=== PATIENT | male | born 1950 | race Caucasian/White ===

== ENCOUNTER 2020-06-12 08:56 | Outpatient (CLI) | payer OTHER, SELFPAY ==
--- NOTE | ~2020-06-12 | US_ITS ---
EXAMINATION: US aorta [facility] scr[facility] DATE: 06/12/2020 10:52 INDICATION: Abdominal aortic aneurysm screening TECHNIQUE: Grayscale, color Doppler, and pulsed Doppler images of the aorta and common iliac arteries were obtained. COMPARISON: None. FINDINGS: The proximal aorta measures 2.1 cm. The mid aorta measures 2.2 cm. The distal aorta measures 2.0 cm. The right common iliac artery measures 11 mm. The left common iliac artery measures 13 mm. IMPRESSION: 1. Normal abdominal aorta. Reviewed, dictated and finalized at location A. IMPRESSION: 1. Normal abdominal aorta.
== END 2020-06-12 08:57 | disposition home or self-care (01) ==
PROVIDERS: PCP Internal Medicine; Visit Provider Nurse Practitioner
DX: Z13.6 Encounter for screening for cardiovascular disorders (principal)
CPT/HCPCS: 76706

== ENCOUNTER 2020-11-17 09:59 | Day surgery (SDC) | payer OTHER, SELFPAY ==
[2020-11-17 10:05] VITALS: BP 161/87; PULSE 82; RESP 20; TEMP 36.6; O2SAT 98
--- NOTE | 2020-11-17 10:59 | ED.GENADULT ---
HPI - General Adult General Chief complaint: Unspecified Stated complaint: FOOD BOLUS Time Seen by Provider: 11/17/20 10:03 History of Present Illness HPI narrative: Patient is a 70-year-old male with history of esophageal stricture who presents ER with concern for esophageal food bolus. Reports last dilation was in November of this year. He follows with Dr. Darnell. This morning he was eating biscuits and gravy and feels like the biscuit got clogged. It occurred about 1 hour prior to arrival. Feels like he was able to burp just prior to arrival. He keeps having regurgitation/vomiting. No fevers or chills or sweats. Feels a central chest pressure consistent with what he gets food stuck in his esophagus. Related Data Home Medications Medication Instructions Recorded Confirmed loratadine 10 mg PO DAILY 12/13/19 05/27/20 Allergies Allergy/AdvReac Type Severity Reaction Status Date / Time No Known Allergies Allergy Verified 11/17/20 11:56 Review of Systems Review of Systems: All systems reviewed & are unremarkable except as noted in HPI and below Constitutional: Constitutional: Denies chills and Denies fever(s) ENT: Reports dysphagia and Denies sore throat Cardiovascular: Cardiovascular: Reports chest pain (Due to food bolus) and Denies chest pain with activity Respiratory: Respiratory: Denies chest congestion, Denies cough and Denies wheezing Gastrointestinal: Gastrointestinal: Denies abdominal pain, Denies nausea and Reports vomiting PMFSH Past Medical History Medical History (Updated 11/18/20 @ 18:33 by Sloan Diamond MD) BPH NOS w ur obs/LUTS (09/19/19) Esophageal stricture GERD without esophagitis Obesity Pure hypercholesterolemia Seizure disorder Surgical History Surgical History (Updated 11/17/20 @ 11:01 by Sloan Diamond MD) History of esophagogastroduodenoscopy (EGD) Family History Family History Mother Family history of lung cancer Family history of malignant neoplasm of breast in first degree relative Family history of Alzheimer's disease Father Family history of renal failure Patient's father is Family history of lung cancer Sibling Patient's brother is in good health Social History Social History Smoking status: Former smoker Smoking end date: 11/28/74 Alcohol intake: never Exam Narrative: Exam Narrative: GENERAL: Well-appearing, well-nourished, and in no acute distress. HEAD: Normocephalic, atraumatic. ENT: Mucous membranes moist. CHEST: Clear to auscultation. No respiratory distress. HEART: Regular rate and rhythm. Normal peripheral pulses. ABDOMEN: Soft, nontender, nondistended. EXTREMITIES: Normal range of motion. Ambulates without difficulty. NEURO: Alert and oriented x3. PSYCH: Normal mood and affect. Course Course Emergency Course: Unable to clear with soda. Dr. Darnell will take to OR. Vital Signs Vital signs: Vital Signs Temperature 97.9 F 11/17/20 10:05 Pulse Rate 82 11/17/20 10:05 Respiratory Rate 20 11/17/20 10:05 Blood Pressure 161/87 H 11/17/20 10:05 Pulse Oximetry 98 11/17/20 10:05 Temperature 98.7 F 11/17/20 11:58 Pulse Rate 67 11/17/20 12:50 Respiratory Rate 16 11/17/20 12:50 Blood Pressure 122/79 11/17/20 12:50 Pulse Oximetry 99 11/17/20 12:50 Medical Decision Making Vital Signs Vital Signs: Vital Signs Temperature 97.9 F 11/17/20 10:05 Pulse Rate 82 11/17/20 10:05 Respiratory Rate 20 11/17/20 10:05 Blood Pressure 161/87 H 11/17/20 10:05 Pulse Oximetry 98 11/17/20 10:05 Temperature 98.7 F 11/17/20 11:58 Pulse Rate 67 11/17/20 12:50 Respiratory Rate 16 11/17/20 12:50 Blood Pressure 122/79 11/17/20 12:50 Pulse Oximetry 99 11/17/20 12:50 Discharge Plan Discharge Clinical Impression: Food impaction of esophagus P
[2020-11-17 11:37] VITALS: BP 138/90; PULSE 83; RESP 18; TEMP 36.7; O2SAT 96
--- NOTE | 2020-11-17 11:40 | WPDANESEPPF ---
Anes - Initial Pre Proc Eval Procedure: Operation Date: 11/17/20 11:30 Proposed Procedures p Esophagogastroduodenoscopy - Demetri Darnell MD Date/Time: 11/17/20 11:40 Surgeon: Demetri Darnell MD Pre Op Diagnosis: FOOD BOLUS Patient Data Age: 70 Gender: M Height: 1.8 m Weight: 106.5 kg Last Vital Signs Temp 36.7 C 11/17/20 11:37 Pulse 83 11/17/20 11:37 Resp 18 11/17/20 11:37 BP 138/90 11/17/20 11:37 Pulse Ox 96 11/17/20 11:37 Allergies Allergy/AdvReac Type Severity Reaction Status Date / Time No Known Allergies Allergy Verified 11/17/20 11:56 Home Medications Medication Instructions Recorded Confirmed Type omeprazole 20 mg capsule,delayed 20 mg PO BID #60 cap 11/27/19 05/27/20 Rx release loratadine 10 mg PO DAILY 12/13/19 05/27/20 History atorvastatin 10 mg tablet See Rx Instructions .ROUTE 10/21/20 Rx .COMPLEX #90 tablet phenytoin 50 mg chewable tablet See Rx Instructions .ROUTE 10/21/20 Rx .COMPLEX #630 tablet Other Studies: DATE: 06/12/2020 10:52 INDICATION: Abdominal aortic aneurysm screening TECHNIQUE: Grayscale, color Doppler, and pulsed Doppler images of the aorta and common iliac arteries were obtained. COMPARISON: None. FINDINGS: The proximal aorta measures 2.1 cm. The mid aorta measures 2.2 cm. The distal aorta measures 2.0 cm. The right common iliac artery measures 11 mm. The left common iliac artery measures 13 mm. IMPRESSION: 1. Normal abdominal aorta. Patient hx anesthesia problems: none Family hx anesthesia problems: none [facility] Past Medical History Medical History (Updated 11/17/20 @ 12:06 by Demetri Darnell MD) BPH NOS w ur obs/LUTS (09/19/19) Esophageal stricture GERD without esophagitis Obesity Pure hypercholesterolemia Seizure disorder Surgical History Surgical History (Updated 11/17/20 @ 11:01 by Sloan Diamond MD) History of esophagogastroduodenoscopy (EGD) Family History Family History Mother Family history of lung cancer Family history of malignant neoplasm of breast in first degree relative Family history of Alzheimer's disease Father Family history of renal failure Patient's father is Family history of lung cancer Sibling Patient's brother is in good health Social History Social History Smoking status: Former smoker Smoking end date: 11/28/74 Alcohol intake: never Anes - Eval Final PreProcedure Day of Procedure 11/17/20 11:40 Patient weight: obese Heart: regular rate and rhythm Lungs: clear to auscultation and normal air movement Airway: Mallampati scale class II Neurological: alert and oriented Last oral intake: >/= 8 hours ASA classification: III Emergent: no Anesthetic plan: proceed Anesthesia type and monitoring: general GIVS Informed Consent: The patient's anesthetic plan and its attendant risks and benefits were discussed with the patient/family/POA. Questions were solicited and answers provided to the satisfaction of the patient/family/POA.
[2020-11-17 11:58] VITALS: BP 141/87; PULSE 87; RESP 16; TEMP 37.1; O2SAT 98
[2020-11-17] MEDS: LACTATED RINGERS 1,000 ML 150 ML IV CONT (12:02)
--- NOTE | 2020-11-17 12:04 | WPDGICN ---
Assessment and Plan Assessment and plan (1) GERD (gastroesophageal reflux disease): Code(s): K21.9 - Gastro-esophageal reflux disease without esophagitis Status: Acute Assessment and Plan: Patient has a longstanding history of GE reflux disease he has had esophageal stricture ring in the past. Had difficulty following some food which appeared to be come impacted in the distal esophagus this morning. Plan is for follow-up EGD. We will or reassess the dose of his proton pump inhibitor. Hopefully remove the food impaction possible dilatation of any recurrent stricture ring. (2) Dysphagia: Code(s): R13.10 - Dysphagia, unspecified Status: Acute (3) Food impaction of esophagus: Code(s): T18.128A - Food in esophagus causing other injury, initial encounter Status: Acute GI Consult Note Consult date/time: 11/17/20 12:04 HPI: Roni Starks is a 70 year old male seen in evaluation at the request of the emergency room. Patient in usual state of health till this morning he was eating breakfast. He abruptly had food caught in his esophagus. He was unable to eat or swallow subsequently for this reason he presented to the emergency room. An EGD will be performed to remove this blockage. Patient has a known history of acid reflux. He has had esophageal stricture ring in the past. He has been prescribed proton pump inhibitors. Currently he is taking a 1/2 dose of omeprazole daily. Omeprazole 10 mg p.o. b.i.d.. Patient denies any heartburn at this time. He denies any weight loss he denies any bleeding. Review of Systems Review of Systems: All systems reviewed & are unremarkable except as noted in HPI and below [facility] Past Medical History Medical History (Updated 11/17/20 @ 12:06 by Demetri Darnell MD) BPH NOS w ur obs/LUTS (09/19/19) Esophageal stricture GERD without esophagitis Obesity Pure hypercholesterolemia Seizure disorder Surgical History Surgical History (Updated 11/17/20 @ 11:01 by Sloan Diamond MD) History of esophagogastroduodenoscopy (EGD) Family History Family History Mother Family history of lung cancer Family history of malignant neoplasm of breast in first degree relative Family history of Alzheimer's disease Father Family history of renal failure Patient's father is Family history of lung cancer Sibling Patient's brother is in good health Social History Social History Smoking status: Former smoker Smoking end date: 11/28/74 Alcohol intake: never Meds Home Medications and Allergies Home Medications Medication Instructions Recorded Confirmed Type omeprazole 20 mg capsule,delayed 20 mg PO BID #60 cap 11/27/19 05/27/20 Rx release loratadine 10 mg PO DAILY 12/13/19 05/27/20 History atorvastatin 10 mg tablet See Rx Instructions .ROUTE 10/21/20 Rx .COMPLEX #90 tablet phenytoin 50 mg chewable tablet See Rx Instructions .ROUTE 10/21/20 Rx .COMPLEX #630 tablet Allergies Allergy/AdvReac Type Severity Reaction Status Date / Time No Known Allergies Allergy Verified 11/17/20 11:56 Vital Signs Vital Signs - 24 hr 11/17/20 10:05 11/17/20 11:37 11/17/20 11:58 Temperature 97.9 F 98.0 F 98.7 F Pulse Rate 82 83 87 Respiratory Rate 20 18 16 Blood Pressure 161/87 H 138/90 141/87 H Pulse Oximetry 98 96 98 Exam Narrative: Exam Narrative: Physical exam reveals patient to be alert. Vital signs stable. HEENT exam unremarkable. He is anicteric. Lungs are clear to auscultation and percussion. Heart is without murmur or extra sounds. Abdominal exam bowel sounds are present soft nontender with no obvious organomegaly. Rectal exam is deferred.
[2020-11-17 12:30] VITALS: BP 129/79; PULSE 71; RESP 13; O2SAT 98
[2020-11-17 12:40] VITALS: BP 118/78; PULSE 70; RESP 18; O2SAT 96
[2020-11-17 12:50] VITALS: BP 122/79; PULSE 67; RESP 16; O2SAT 99
== END 2020-11-17 13:10 | disposition home or self-care (01) ==
LOC: ANHED 11:28 → ANHENDO 11:29
PROVIDERS: Emergency Provider Emergency Medicine; PCP Internal Medicine; Visit Provider Internal Medicine Gastroenterology
PROC: 0DJ08ZZ Inspection of Upper Intestinal Tract, Via Natural or Artificial Opening Endoscopic (ICD-10-PCS; CPT 43235; principal; 2020-11-17 11:30)
DX: T18.128A Food in esophagus causing other injury, initial encounter (principal); K21.9 Gastro-esophageal reflux disease without esophagitis; K22.2 Esophageal obstruction; R13.10 Dysphagia, unspecified; G40.909 Epilepsy, unspecified, not intractable, without status epilepticus; E78.00 Pure hypercholesterolemia, unspecified; N40.1 Benign prostatic hyperplasia with lower urinary tract symptoms; N13.8 Other obstructive and reflux uropathy; Z87.891 Personal history of nicotine dependence; E66.9 Obesity, unspecified; Z68.32 Body mass index [BMI] 32.0-32.9, adult
CPT/HCPCS: 43450; 43235; 99285; J2704; J7120

== ENCOUNTER 2021-01-29 08:00 | Outpatient (RCR) | payer OTHER, SELFPAY ==
[2020-12-25 08:05] VITALS: BP_SYST 125
--- NOTE | 2020-12-25 09:01 | PTOPEVAL ---
PHYSICAL THERAPY EVALUATION AND PLAN OF CARE 12-25-2020 Thank you for referring Roni Starks to [facility].? He is scheduled to be seen for therapy? 1-2 x/week for 5 weeks. Please review, sign, date and return this plan of care JERAMIE. I agree with and certify that the following plan of care is medically necessary. Referring Physician Date Attending Provider: Valerie Mackey, GABRIELAC *PT Outpatient Evaluation Document 12/25/20 08:05 GUS (Rec: 12/25/20 09:01 GUS [id number]) Outpatient Past Medical History Past Medical History Source of Past Medical History Recalled from Previous Visit, Confirmed with Patient/Family Neurological History Hx Seizures Yes: 2000 last seizure- on meds Cardiovascular History Hx Hypercholesterolemia Yes: meds Respiratory History Hx Respiratory Disorders No Significant History Gastrointestinal History Hx Gastroesophageal Reflux Disease Yes Hx Other Gastrointestinal Disorders Yes: dysphagia-last egd with dilatation 2017 Genitourinary History Hx Genitourinary Disorders No Significant History Musculoskeletal History Hx Back Pain Yes: chronic intermittent low back pain Hematological History Hx Hematological Disorders No Significant History Endocrine History Hx Endocrine Disorders No Significant History HEENT History Hx Cataracts Yes: starting Hx Tonsillectomy Yes Integumentary History Hx Other Skin Disorders Yes: very dry Reproductive History Hx Reproductive Disorders No Significant History Psychosocial History Hx Psychiatric Disorders No Significant History Pain History History of Any Previous or Ongoing No Significant History Instance of Pain Anesthesia History Hx Anesthesia Reactions No Significant History Evaluation Information Problem Diagnosis L shoulder pain Onset Sep 2020 Subjective Information gradual increase in pain with Query Text:As Reported By Patient/ cold weather; no trauma or Family injury to shoulder; Diagnostic Tests X-Rays For This Problem No MRI For This Problem No Other Tests For This Problem No Previous Treatments Previous Treatments For This Problem no PT for shoulder Prior Level of Function Activity Level (Last 3 Months) 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
--- NOTE | 2021-01-29 08:34 | PTOPEVAL ---
PHYSICAL THERAPY DISCHARGE 01-29-21 Refer to the clinical summary below for his status at discharge. Thank you for referring Roni Starks to [facility].? Please review, sign, date and return this discharge JERAMIE. I agree with and certify that the following plan of care is medically necessary. Referring Physician Date Attending Provider: Valerie Mackey, GABRIELAC Document 01/29/21 08:05 GUS (Rec: 01/29/21 08:34 GUS [id number]) Assessment Status Discharge Subjective Information Roni reports: shoulder is Query Text:As Reported By Patient/ much better, not hurting like Family it was and moving with more range; doing home exercises without any problems and watching his posture; pleased with his progress and agrees to be discharged from PT; Pain Assessment Timing of Pain Assessment Timing of Pain Assessment Assessment Pain Scale Pain Scale Used Numeric (1 - 10) Self Report Pain Assessment Left Shoulder(s) Reported Pain Level 0 Pain Frequency Chronic Lowest Pain Intensity 0 Greatest Pain Intensity 4 Other Pain Aggravating Factors stretching anterior shoulder and IR stretch; Pain Score Pain Score 0: Self Report Additional Pain Score Comments put on shirt without pain, doing all home tasks without issues, sleeping OK; Interventions Used Interventions Used By Clinicians Education,Exercise Upper Extremity Range of Motion Scapular/ Shoulder Range of Motion Left Shoulder Flexion - Active 135 Shoulder Abduction - Active 135 Shoulder Medial Rotation - Active thumb to distal scapula Query Text:Reach Behind the Back Shoulder Lateral Rotation - Active palm to back of head Query Text:Reach Behind the Head Scapular/Shoulder Range of Motion no pain with active L shoulder Comments motions Upper Extremity Muscle Strength Testing General Upper Extremity Strength Gross Upper Extremity Strength Comments standing; green theraband: B rows and sh diagonal pulls to R and L x 10 reps; reviewed previous HEP and performed correctly- pec stretch, active ROM and posture correction with scapular adduction; HEP- reviewed previous HEP and issued above handout; issued green theraband and blue to progress to as strength improves; Posture Posture
== END 2021-01-29 13:35 | disposition home or self-care (01) ==
LOC: ANHPT 08:00
PROVIDERS: PCP Internal Medicine; Visit Provider Nurse Practitioner
DX: M25.512 Pain in left shoulder (principal)
CPT/HCPCS: 97110; 97140; 97161

== ENCOUNTER 2021-08-28 14:08 | Emergency (ER) | payer OTHER, SELFPAY ==
--- NOTE | ~2021-08-28 | XR_ITS ---
XR foot LT min 3V DATE: 08/28/2021 14:33 INDICATION: Injury, pain TECHNIQUE: 4 views COMPARISON: 08/28/2021 right ankle FINDINGS: There is a comminuted fracture of the calcaneus with flattening of Boehler's angle and intr a-articular extension at the subtalar and calcaneocuboid joints. Plantar and minimal posterior calcaneal enthesopathy. No other fracture or dislocation is detected. IMPRESSION: Comminuted fracture of the calcaneus with intra-articular extension at the subtalar and c alcaneocuboid joints Reviewed, dictated and finalized at location B. IMPRESSION: Comminuted fracture of the calcaneus with intra-articular extension at the subtalar and calcaneocuboid joints
--- NOTE | ~2021-08-28 | CT_ITS ---
EXAMINATION: CT foot LT wo con DATE: 08/28/2021 17:43 INDICATION: Left heel fracture, pain TECHNIQUE: Computed tomography (CT) of the left foot was performed without intravenous contrast. The dose-length product (DLP) was 351.71 mGy-cm. Automated exposure control and iterative reconstruction technique were employed. COMPARISON: Radiograph from today FINDINGS: There is a markedly comminuted fracture of the calcaneus. Multiple fracture planes extend i nto the subtalar space. There is a small oblique fracture involving the lateral margin of the talus, best appreciated on coronal reconstructed image 188. No additional fracture is identified. There is s oft tissue swelling of the foot, predominantly surrounding the calcaneus. IMPRESSION: 1. Comminuted fractures of the calcaneus with multiple fracture planes extending to the subtalar spac e. 2. Small oblique fracture at the lateral margin of the talus. Reviewed, dictated and finalized at location A. IMPRESSION: 1. Comminuted fractures of the calcaneus with multiple fracture planes extendin g to the subtalar space. 2. Small oblique fracture at the lateral margin of the talus.
--- NOTE | ~2021-08-28 | XR_ITS ---
XR ankle LT min 3V DATE: 08/28/2021 14:33 INDICATION: Injury, pain TECHNIQUE: 4 views of left ankle COMPARISON: None FINDINGS: There is a comminuted fracture of the calcaneus with intra-articular extension at the calca neocuboid joint and subtalar joint. Boehler's angle is diminished to 17 degrees. The distal tibia and fibula and the talus appear intact. Ankle mortise is preserved. Plantar and slight posterior calcaneal enthesopathy. IMPRESSION: Comminuted fracture of the calcaneus with intra-articular subtalar and calcaneocuboid norma nt extension Plantar and minimal posterior calcaneal enthesopathy Reviewed, dictated and finalized at location B. IMPRESSION: Comminuted fracture of the calcaneus with intra-articular subtalar and calcaneocuboid joint extension Plantar and minimal posterior calcaneal enthesopathy
[2021-08-28 14:12] VITALS: BP 139/73; PULSE 77; RESP 16; TEMP 36.9; O2SAT 98
--- NOTE | 2021-08-28 16:59 | ED.LOWEXIN ---
HPI - Extremity Injury (Lower) General Chief Complaint: Extremity Injury, Lower Stated Complaint: L ANKLE INJURY Time Seen by Provider: 08/28/21 16:37 Source: patient Mode of arrival: wheelchair Limitations: no limitations History of Present Illness HPI Narrative: This is a 71 year old male that presents to the ER for left foot pain after an injury sustained just prior to arrival. Reports he jumped off of his boat onto the concrete. Reports the was about a 2-3 foot drop. Reports he landed on his left foot and has had pain and swelling in the heel since. Denies hitting his head, loss of consciousness, other injuries, back pain, decreased range of motion, or numbness. Related Data Home Medications Medication Instructions Recorded Confirmed loratadine 10 mg PO DAILY 12/13/19 07/31/21 triamcinolone acetonide 0.1 % 1 applic TOPICAL BID PRN g 06/18/21 07/31/21 topical cream Allergies Allergy/AdvReac Type Severity Reaction Status Date / Time No Known Allergies Allergy Verified 08/28/21 17:26 Review of Systems Review of Systems: CONSTITUTIONAL: Denies fever MUSCULOSKELETAL: Reports joint pain and myalgia. Denies back pain NEUROLOGIC: Denies numbness All systems reviewed & are unremarkable except as noted in HPI and below PMFSH Past Medical History Medical History (Updated 08/28/21 @ 19:06 by Beryl Hurt PA-C) BPH NOS w ur obs/LUTS (09/19/19) Esophageal stricture Generalized pruritus GERD without esophagitis Obesity Pure hypercholesterolemia Seizure disorder Surgical History Surgical History History of esophagogastroduodenoscopy (EGD) Family History Family History Mother Family history of lung cancer Family history of malignant neoplasm of breast in first degree relative Family history of Alzheimer's disease Father Family history of renal failure Patient's father is Family history of lung cancer Sibling Patient's brother is in good health Social History Social History (Updated 07/31/21 @ 14:18 by Glendy Perry CNA) Smoking packs per day: 1 Smoking cigarettes per day: 20.0 Years smoked: 12 Smoking pack-years: 12.00 Smoking status: Former smoker Second hand tobacco smoke exposure: No Smoking end date: 11/28/74 Alcohol intake: never Substance use: never Exam Narrative: GENERAL: Well-appearing, well-nourished, and in no acute distress. HEAD: Normocephalic, atraumatic. EYES: EOMI. CHEST: Clear to auscultation. No respiratory distress. No wheezes rales or rhonchi HEART: Regular rate and rhythm. No murmur heard. Normal peripheral pulses. BACK: No midline spinal tenderness EXTREMITIES: Normal range of motion. No obvious deformity. Mild edema about the left calcaneal bone, tender to palpation. Normal DP pulses. Normal sensation SKIN: Warm, dry, no rash. NEURO: No focal deficits. Alert and oriented x3. PSYCH: Normal mood and affect Course Consultations Consultation #1: Spoke with Dr. Crystal about patient and work-up who would like CT scan. Patient to be placed in a splint and follow-up in clinic. Date: 08/28/21 Time: 19:00 Vital Signs Vital signs: Vital Signs Temperature 98.4 F 08/28/21 14:12 Pulse Rate 77 08/28/21 14:12 Respiratory Rate 16 08/28/21 14:12 Blood Pressure 139/73 08/28/21 14:12 Pulse Oximetry 98 08/28/21 14:12 Temperature 98.4 F 08/28/21 14:12 Pulse Rate 77 08/28/21 14:12 Respiratory Rate 16 08/28/21 14:12 Blood Pressure 139/73 08/28/21 14:12 Pulse Oximetry 98 08/28/21 14:12 Procedures Orthopedic Splinting/Casting Injury #1: Splinting/Casting Date: 08/28/21 Splinting/Casting Time: 19:00 Side: left Lower Extremity Injury Location: foot Lower Extremity Immobilizer: posterior splint Splint: customized in ED OCL: posterior Pre-Procedur
[2021-08-28] MEDS: ACETAMINOPHEN 500 MG TABLET 1000 MG PO (17:14)
== END 2021-08-28 19:10 | disposition home or self-care (01) ==
PROVIDERS: Emergency Provider Emergency Medicine; PCP Internal Medicine
DX: S92.062A Displaced intraarticular fracture of left calcaneus, initial encounter for closed fracture (principal); S92.142A Displaced dome fracture of left talus, initial encounter for closed fracture; N40.1 Benign prostatic hyperplasia with lower urinary tract symptoms; K21.9 Gastro-esophageal reflux disease without esophagitis; E78.00 Pure hypercholesterolemia, unspecified; G40.909 Epilepsy, unspecified, not intractable, without status epilepticus; E66.9 Obesity, unspecified; Z68.32 Body mass index [BMI] 32.0-32.9, adult; Z87.891 Personal history of nicotine dependence; M77.9 Enthesopathy, unspecified; X50.9XXA Other and unspecified overexertion or strenuous movements or postures, initial encounter
CPT/HCPCS: 29515; 73610; 73630; 73700; 99284; A9270

== ENCOUNTER → 2021-12-19 00:20 | Outpatient (CLI) | payer OTHER, SELFPAY ==
[2021-12-19 20:23] LABS: SARS-CoV-2 RNA PCR Positive
[2021-12-20 23:32] LABS: Influenza A QL RT-PCR Negative (Negative); Influenza B QL RT-PCR Negative (Negative)
== END ==
PROVIDERS: PCP Internal Medicine; Visit Provider Internal Medicine
DX: R68.89 Other general symptoms and signs (principal); U07.1 COVID-19
CPT/HCPCS: 87502; C9803; U0003; U0005

== ENCOUNTER 2021-12-21 09:34 | Outpatient (RCR) | payer OTHER, SELFPAY ==
[2021-12-21 10:00] VITALS: BP 152/71; PULSE 94; RESP 20; TEMP 37.2; O2SAT 98
[2021-12-21] MEDS: diphenhydrAMINE HCl CAP 25 MG CAPSULE PO (10:02)
[2021-12-21] MEDS: FAMOTIDINE 20 MG TABLET PO (10:02)
[2021-12-21 11:21] VITALS: BP 122/72; PULSE 90; O2SAT 97
== END 2021-12-21 17:00 ==
LOC: AMCINF 09:34
PROVIDERS: PCP Internal Medicine; Referring Provider Internal Medicine; Visit Provider Internal Medicine Hematology & Oncology
DX: U07.1 COVID-19 (principal)
CPT/HCPCS: A9270; M0247; Q0247

== ENCOUNTER → 2022-01-19 13:37 | Outpatient (CLI) | payer OTHER, SELFPAY ==
--- NOTE | ~2022-01-19 | XR_ITS ---
XR wrist RT min 3V 01/19/2022 14:04 Indication: Osteoarthritis Procedure: 4 views right wrist Comparison: No prior studies for comparison. Findings: There is polyarticular osteoarthritis involving the triscaphe, first carpal metacarpal, fir st MCP and IP joints as well as the second and third MCP joints. No fracture or traumatic malalignmen t. No significant soft tissue abnormality. No erosive changes. No focal soft tissue abnormality. No f oreign bodies. Impression: 1: Moderate polyarticular osteoarthritis. Reviewed, dictated and finalized at location B. HAULER Impression: 1: Moderate polyarticular osteoarthritis.
== END ==
PROVIDERS: PCP Internal Medicine; Visit Provider Plastic Surgery
DX: M19.031 Primary osteoarthritis, right wrist (principal)
CPT/HCPCS: 73110

== ENCOUNTER → 2022-04-14 13:33 | Outpatient (CLI) | payer OTHER, SELFPAY ==
--- NOTE | ~2022-04-14 | XR_ITS ---
EXAMINATION: XR chest 2V DATE: 04/14/2022 13:55 INDICATION: Shortness of breath. TECHNIQUE: Frontal and lateral views of the chest were obtained. COMPARISON: Chest 2 views 01/14/2015, CT abdomen and pelvis 11/26/2009 FINDINGS: The chest demonstrates clear lungs without pneumonia, pleural effusion, or pneumothorax. Th e heart size is normal. There is a small hiatal hernia. There is a chronic compression fracture of T1 1. IMPRESSION: 1. Small hiatal hernia. Reviewed, dictated and finalized at location B. IMPRESSION: 1. Small hiatal hernia.
== END ==
PROVIDERS: PCP Internal Medicine; Visit Provider Internal Medicine
DX: R06.02 Shortness of breath (principal); K44.9 Diaphragmatic hernia without obstruction or gangrene
CPT/HCPCS: 71046

== ENCOUNTER 2022-04-29 09:25 | Outpatient (CLI) | payer OTHER, SELFPAY ==
--- NOTE | 2022-04-29 09:30 | EST_ITS ---
Patient Info Name: Roni Starks Age: 71 years : 1950 Gender: Male Ht: 70 in Wt: 223 lbs BSA: 2.27 m2 HR: 80 bpm BP: 139 / 66 mmHg Heart Rhythm: Sinus Rhythm Technical Quality: Good Exam Date: 04/29/2022 9:51 AM Exam Location: [facility] Patient Status: Outpatient Admit Date: 04/29/2022 Staff Ordering Physician: Facundo Damon DO Youth Manager: Janae Bravo RDCS Attending Provider: DR. ROBINS Referring Physician: Nelson PRINCE; Exercise Technologist: Ayleen Linares CT Exercise Physician: Kameron Robins DO Exam Type: CA stress echo Study Info Indications - GARCIA Treadmill exercise stress echocardiogram is performed. Summary 1. 1. Negative Garland exercise stress test for ischemic ST changes by ECG criteria. 2. 2. Reduced functional capacity, achieving 6 METs of workload. 3. 3. Appropriate HR response to exercise. 4. 4. Appropriate HR recovery at 1 minute post exercise. 5. 5. Negative stress echocardiogram for ischemia by wall motion analysis. 6. 6. Patient informed of the above results. Stress Echo Findings Left Ventricle Appropriate increase in LV endocardial thickening with systole. Appropriate augmentation of contractility with systole. No wall motion abnormality. Left Ventricle Normal LV systolic function, no wall motion abnormality. Protocol: Garland Stress ECG Details Stage: REST Duration (min): 1 min : 16 sec Speed (mph): 0.0 Grade (%): 0 HR (bpm): 75 SBP (mmHg): 139 DBP (mmHg): 66 METS: --- Stage: REST Duration (min): 20 min : 6 sec Speed (mph): 0.0 Grade (%): 0 HR (bpm): 85 SBP (mmHg): 139 DBP (mmHg): 66 METS: --- Stage: STAGE 1 Duration (min): 1 min : 0 sec Speed (mph): 1.7 Grade (%): 10 HR (bpm): 107 SBP (mmHg): 139 DBP (mmHg): 66 METS: --- Stage: STAGE 1 Duration (min): 2 min : 0 sec Speed (mph): 1.7 Grade (%): 10 HR (bpm): 124 SBP (mmHg): 139 DBP (mmHg): 66 METS: --- Stage: STAGE 1 Duration (min): 3 min : 0 sec Speed (mph): 1.7 Grade (%): 10 HR (bpm): 129 SBP (mmHg): 144 DBP (mmHg): 57 METS: --- Stage: STAGE 2 Duration (min): 1 min : 0 sec Speed (mph): 2.5 Grade (%): 12 HR (bpm): 137 SBP (mmHg): 144 DBP (mmHg): 57 METS: --- Stage: STAGE 2 Duration (min): 1 min : 4 sec Speed (mph): 0.0 Grade (%): 0 HR (bpm): 138 SBP (mmHg): 144 DBP (mmHg): 57 METS: --- Stage: RECOVERY Duration (min): 0 min : 55 sec Speed (mph): 0.0 Grade (%): 0 HR (bpm): 125 SBP (mmHg): 131 DBP (mmHg): 50 METS: --- Stage: RECOVERY Duration (min): 1 min : 55 sec Speed (mph): 0.0 Grade (%): 0 HR (bpm): 105 SBP (mmHg): 131 DBP (mmHg): 50 METS: --- Stage: RECOVERY Duration (min): 2 min : 50 sec Speed (mph): 0.0 Grade (%): 0 HR (bpm): 89 SBP (mmHg): 186 DBP (mmHg): 71 METS: --- Rest HR: 85 bpm Peak HR: 139 bpm Rest Sys BP:
== END 2022-04-29 09:26 | disposition home or self-care (01) ==
LOC: ANHCARD 09:25
PROVIDERS: PCP Internal Medicine; Visit Provider Internal Medicine
DX: R06.00 Dyspnea, unspecified (principal)
CPT/HCPCS: 93351

== ENCOUNTER 2022-05-06 07:49 | Outpatient (RCR) | payer OTHER, SELFPAY ==
[2022-04-19] VITALS (10 sets, daily range): BP systolic 117–129; BP diastolic 58–74; PULSE 72–80; RESP 14–18; TEMP 36.2–36.7; O2SAT 97–100
[2022-04-19 08:11] LABS: Hematocrit 19.2 % (42.0-52.0); Hemoglobin 6.2 g/dL (14.0-18.0)
[2022-05-05 15:56] LABS: Hematocrit 19.3 % (42.0-52.0); Hemoglobin 6.1 g/dL (14.0-18.0)
--- NOTE | 2022-05-05 16:02 | PC.NURSE ---
Lab called with critical lab results, Dr. Facundo Damon office notified of results. Spoke with Pati SOLIS, reports she will notify Dr. Damon.
[2022-05-06] VITALS (11 sets, daily range): BP systolic 106–125; BP diastolic 6–75; PULSE 73–85; RESP 12–18; TEMP 36.3–37.3; O2SAT 96–100; BMI 33.5
== END 2022-07-16 23:59 | disposition home or self-care (01) ==
LOC: ANHCPCTRAN 07:49
PROVIDERS: PCP Internal Medicine; Visit Provider Internal Medicine
DX: D64.9 Anemia, unspecified (principal)
CPT/HCPCS: 36415; 36430; 85014; 85018; 86850; 86900; 86901; 86920; J7050; P9016

== ENCOUNTER 2024-04-24 11:22 | Outpatient (CLI) | payer OTHER, SELFPAY ==
--- NOTE | ~2024-04-24 | CT_ITS ---
Non-contrast Head CT History: TIA Technique: Axial non-contrast imaging of the brain was performed. Dose reduction technique was used on this scan by utilizing automated exposure control and iterative reconstruction technique. The dose -length product (DLP) was 681.00 mGy-cm. Findings: There is a large wedge-shaped area of hypoattenuation involving the left temporal and parie carlos lobes, as well as the posterior left frontal lobe, compatible with acute to subacute infarct. Hyp erdensity involving the peripheral aspect of the infarct is compatible with hemorrhagic transformatio n. No mass effect or midline shift. The ventricles and subarachnoid spaces are normal in size. The c alvarium appears normal. The visualized paranasal sinuses and mastoid air cells are clear. Impression: Acute to subacute left MCA distribution infarct, predominantly left temporoparietal lobes, with hemor rhagic transformation. No mass effect or midline shift. The phone to Dr. Ceja's office went without answer despite multiple calls. Patient was taken to the ER for evaluation/management. Reviewed, dictated and finalized at location M. Impression: Acute to subacute left MCA distribution infarct, predominantly left temporopari etal lobes, with hemorrhagic transformation. No mass effect or midline shift. The phone to Dr. Ceja's office went without answer despite multiple calls. Cinthya warner was taken to the ER for evaluation/management.
--- NOTE | ~2024-04-24 | CT_ITS ---
EXAMINATION: CTA neck DATE: 04/24/2024 12:02 INDICATION: Transient ischemic attack. TECHNIQUE: Computed tomographic angiography (CTA) of the neck was performed with 100 mL Omnipaque-350 intravenous contrast. Automated exposure control and iterative reconstruction technique were employe d. The dose-length product was 683.04 mGy-cm. Maximum intensity projection 3D-reconstructions were cr eated by the technologist on a separate workstation. COMPARISON: None. FINDINGS: There is mild emphysema. There are no pathologically enlarged lymph nodes. Left vertebral a rtery is dominant. There is no significant stenosis of the vertebral arteries. There is mild plaque i n the proximal internal carotid arteries. There is 0% stenosis of the proximal right internal carotid artery relative to normal distal artery lumen diameter (NASCET criteria). There is 0% stenosis of th e proximal left internal carotid artery relative to normal distal artery lumen diameter. There is mil d cervical spondylosis. IMPRESSION: 1. 0% stenosis of the proximal internal carotid arteries relative to normal distal artery lumen diame ters (NASCET criteria). Reviewed, dictated and finalized at location A. IMPRESSION: 1. 0% stenosis of the proximal internal carotid arteries relative to normal dis carlos artery lumen diameters (NASCET criteria).
[2024-04-24 11:56] LABS: Estimated Glomerular Filt Rate > 60
== END 2024-04-24 11:23 | disposition home or self-care (01) ==
LOC: ANHIMG 11:26
PROVIDERS: PCP Family Medicine; Visit Provider Family Medicine
DX: G45.9 Transient cerebral ischemic attack, unspecified (principal)
CPT/HCPCS: 70450; 70498; Q9967

== ENCOUNTER 2024-04-24 12:13 | Emergency (ER) | payer OTHER, SELFPAY ==
[2024-04-24] VITALS (8 sets, daily range): BP systolic 128–141; BP diastolic 73–84; PULSE 50–78; RESP 16–98; TEMP 36.4–36.7; O2SAT 96–99
--- NOTE | 2024-04-24 12:40 | ED.GENADULT ---
HPI - General Adult General Chief complaint: Recheck/Abnormal Lab/Rx Stated complaint: from CT after cva imaging? Time Seen by Provider: 04/24/24 12:17 History of Present Illness HPI narrative: 73-year-old male present to the emergency department for evaluation for increased confusion difficulty concentrating over the course of the last week and half. Patient communicated this to his primary care physician and had an outpatient CT ordered. CT scan did show acute to subacute left MCA distribution infarct predominantly left temporoparietal lobe with hemorrhagic transformation. 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 Patient does prefer transfer into the [place] system again. CT Impression: Acute to subacute left MCA distribution infarct, predominantly left temporoparietal lobes, with hemorrhagic transformation. No mass effect or midline shift. Related Data Home Medications Medication Instructions Recorded Confirmed multivitamin 1 tablet PO DAILY 08/03/23 Allergies Allergy/AdvReac Type Severity Reaction Status Date / Time No Known Allergies Allergy Verified 08/03/23 14:06 Review of Systems Review of Systems: All systems reviewed & are unremarkable except as noted in HPI and below PMFSH Past Medical History Medical History BPH NOS w ur obs/LUTS (09/19/19) Esophageal stricture Generalized pruritus GERD without esophagitis Obesity Pure hypercholesterolemia Seizure disorder Surgical History Surgical History History of esophagogastroduodenoscopy (EGD) Family History Family History Mother Family history of lung cancer Family history of malignant neoplasm of breast in first degree relative Family history of Alzheimer's disease Father Family history of renal failure Patient's father is Family history of lung cancer Sibling Patient's brother is in good health Social History Social History Smoking packs per day: 1 Smoking cigarettes per day: 20.0 Years smoked: 12 Smoking pack-years: 12.00 Smoking status: Former smoker Tobacco type: cigarettes Second hand tobacco smoke exposure: No Smoking end date: 11/28/74 Alcohol intake: current Substance use: never Lack of Transportation: No Lack of Food: Never True Current Housing: I Have Housing Concerned About Future Housing: No Difficulty Paying Gas/Electric Bills: No Difficulty Paying for Meds: No Currently Unemployed: No Education: High School Diploma/GED Difficulty w/ Childcare or Family Care: No Exam Narrative: APPEARANCE: Well appearing, no pain, no distress, well-nourished. HEAD: normocephalic, atraumatic. EYES: PERRLA/EOMI, conjunctivae clear. NOSE: Normal no drainage EARS:TMS clear with good light reflex. THROAT: Pharynx clear, no exudate. NECK: Supple. No adenopathy, no masses. RESPIRATORY: Airway patent, respirations nonlabored. Clear to auscultation bilaterally, no rales, rhonchi, wheezing. CARDIOVASCULAR: Regular rate and rhythm without murmurs rubs or gallops. ABDOMINAL: Soft, nontender, nondistended, normal bowel sounds MUSCULOSKELETAL: Moves all extremities. Strength/ROM intact, No edema, No calf tenderness. NEURO: Alert. Cranial nerves II through XII intact. impaired reading on the neuro screening SKIN: Warm, dry. Normal Color Course Vital Signs Vital signs: Vital Signs Temperature 97.6 F 04/24/24 12:23 Pulse Rate 62 04/24/24 12:23 Respiratory Rate 16 04/24/24 12:23 Blood Pressure 137/73 04/24/24 12:23 Pulse Oximetry 99 04/24/24 12:23 Oxygen Delivery Room Air 04/24/24 12:23 Temperature 98.0 F 04/24/24 16:46 Pulse Rate 58 L 04/24/24 16:46 Respiratory Rate 18 04/24/24 16:46 Blood Pressure
[2024-04-24 12:51] LABS: Basophils Percent Auto 0.4 % (0.2-1.2); Eosinophils Absolute Auto 0.1 K/mm3 (0-0.3); Eosinophils Percent Auto 1.1 % (0-4.4); Hematocrit 40.1 % (42.0-52.0); Hemoglobin 14.1 g/dL (14.0-18.0); Immature Granulocyte Absolute 0.01 K/mm3 (0.00-0.031); Immature Granulocyte Percent A 0.2 % (0-0.5); Lymphocytes Absolute Auto 1.95 K/mm3 (0.9-3.2); Lymphocytes Percent Auto 35.3 % (18.3-44.2); Mean Corpuscular HGB Conc 35.2 g/dl (32-36); Mean Corpuscular Hemoglobin 32.9 pg (26-34); Mean Corpuscular Volume 93.7 fl (80-100); Monocytes Absolute Auto 0.5 K/mm3 (0.1-0.6); Monocytes Percent Auto 9.2 % (2.6-8.5); Neutrophils Percent Auto 53.8 % (45.5-73.1); Platelet Count Result 204 k/mm3 (150-375); Red Blood Count 4.28 M/mm3 (4.6-6.20); Red Cell Distribution Width 12.3 % (11.5-14.5); White Blood Count 5.5 K/mm3 (4.5-10.0)
[2024-04-24 13:01] LABS: Alanine Aminotransferase 78 U/L (6-50); Albumin Level 4.3 g/dL (3.5-5.1); Alkaline Phosphatase 98 U/L (38-126); Anion Gap 8 mmol/L (4-12); Aspartate Amino Transferase 53 U/L (17-59); Bilirubin,Total 0.6 mg/dL (0.2-1.3); Blood Urea Nitrogen 19 mg/dL (9-20); Carbon Dioxide 23 mmol/L (22-30); Chloride 106 mmol/L (98-107); Estimated CRCL calculation 84 ml/min; Estimated Glomerular Filt Rate > 60; Glucose 99 mg/dL (65-110); Potassium 4.1 mmol/L (3.4-5.0); Sodium 137 mmol/L (137-145)
--- NOTE | 2024-04-24 13:01 | ECG_ITS ---
SEE SCANNED COPY FOR CONFIRMED REPORT MTDD
[2024-04-24 13:03] LABS: INR 1.1; Prothrombin Time 14.2 Seconds (11.1-14.7)
[2024-04-24 13:04] LABS: Partial Thromboplastin Time 30.4 Seconds (22.3-36.8)
[2024-04-24] MEDS: levETIRAcetam 1000MG/NACL100ML 1,000 MG/100 ML BAG 400 MG IVPB (15:46)
--- NOTE | 2024-04-24 15:55 | PC.NURSE ---
1400 Pt voices confusion on finding right words, unable to comprehend when reading, reports pt unable to find common items in the house. Pt states he has a loud humming noise in his head from time to time.
--- NOTE | 2024-04-24 15:57 | PC.NURSE ---
Dr. Tabor spoke with pt family in length on POC. All & pt agreeable to transfer to [place].
--- NOTE | 2024-04-24 15:58 | PC.NURSE ---
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
== END 2024-04-24 16:49 | disposition short-term general hospital (02) ==
PROVIDERS: Emergency Provider Emergency Medicine; PCP Family Medicine
DX: I63.412 Cerebral infarction due to embolism of left middle cerebral artery (principal); R29.701 NIHSS score 1; G40.909 Epilepsy, unspecified, not intractable, without status epilepticus; E66.9 Obesity, unspecified; Z68.35 Body mass index [BMI] 35.0-35.9, adult; E78.00 Pure hypercholesterolemia, unspecified; N40.1 Benign prostatic hyperplasia with lower urinary tract symptoms; K21.9 Gastro-esophageal reflux disease without esophagitis; Z85.6 Personal history of leukemia; Z87.891 Personal history of nicotine dependence; R00.1 Bradycardia, unspecified
CPT/HCPCS: 36415; 70450; 70498; 80053; 85025; 85610; 85730; 93005; 96365; 99285; J1953; Q9967